=== PATIENT | male | born 1930 | race Caucasian/White ===

== ENCOUNTER 2016-10-08 20:50 | Inpatient (IN) ==
--- NOTE | 2016-10-08 21:48 | PROVIDER DOCUMENTATION ---
HPI-Abdominal Pain/GI Problem - General Chief Complaint: Rectal Bleeding Stated Complaint: Abd pain and Rectal bleeding Time Seen by Provider: 10/08/16 21:20 Source: patient Allergies/Adverse Reactions: Patient Allergies Allergy/AdvReac Type Severity Reaction Status Date / Time meperidine HCl * Allergy Severe prolonged Verified 08/07/16 21:57 [From Demerol] sedation Home Medications: Home Medication List Medication Instructions Recorded Confirmed Last Taken Type Tamsulosin HCl 0.4 mg PO DAILY 03/30/15 10/08/16 10/07/16 History Amlodipine Besylate 5 mg PO DAILY 10/08/16 10/08/16 10/07/16 History Citalopram Hydrobromide 20 mg PO DAILY 10/08/16 10/08/16 10/07/16 History [Citalopram HBr] Cyanocobalamin (Vitamin B-12) 5,000 mcg PO DAILY 10/08/16 10/09/16 10/07/16 History [Vitamin B12] - History of Present Illness-ABD Nature of Presenting Problems: Patient is a pleasant 86 yrs old gentleman who has come with complaint of bleeding per rectum. He states that he was doing alright. Ready to take shower when he felt like having a bowel movement. He went to the commord and then passed bright red blood. He started having some lower abd pain as well which was cramping like in nature and moderate in severity . No other particular complaints . No N/V no headache , no dizziness, lightheadedness or any other complaints. He tells that he had a colonoscopy done in the past and got some poypectomy done. Per records he did have an admission before for GI bleeding as well. He sees the GI here at [facility] , does not remember name of the physician. Abdominal Pain Onset Location: reports: RLQ, suprapubic Pain Radiation: reports: no radiation Quality of Pain: reports: sharp Severity in ED: reports: mild Onset/Duration: reports: abrupt, 1-3 hours ago Timing: reports: improving Activities at Onset: reports: light activity Exposure to sick contacts?: No Modifying Factors: improves with: nothing Associated Symptoms: reports: denies symptoms Last BM: this evening Dark Stools Present?: reports: bright red blood Rectal Bleeding: reports: bleeding without stool, bright red blood on paper Rectal Pain: reports: none Emesis Description: reports: none Bruising or Bleeding Gums?: No Similar Symptoms Previously?: No Recently seen or treated by another doctor?: No Review of Systems - Adult - REVIEW OF SYSTEMS - ADULT Constitutional: reports: no symptoms reported Eyes: reports: no symptoms reported Ears, Nose, Mouth & Throat: reports: no symptoms reported Cardiovascular: reports: no symptoms reported Respiratory: reports: no symptoms reported Gastrointestinal: reports: see HPI Genitourinary: reports: no symptoms reported Musculoskeletal: reports: no symptoms reported Integumentary: reports: no symptoms reported Neurological: reports: no symptoms reported Psychiatric: reports: no symptoms reported Endocrine: reports: no symptoms reported Hematologic/Lymphatic: reports: no symptoms reported Allergic/Immunologic: reports: no symptoms reported Past History - Adult - PAST MEDICAL HISTORY-ADULT Review of Records: reports: Old Records Reviewed Major Childhood Illnesses: reports: denies history Cardiovascular: reports: HTN Gastrointestinal: reports: GI bleed, polyps Genitourinary: reports: prostate cancer Neurological: reports: CVA - PRIOR SURGERIES/PROCEDURES Surgical/Procedure History: reports: appendectomy - PRIOR HOSPITALIZATIONS Prior Hospitalizations: reports: none - IMMUNIZATION STATUS Childhood Immunizations: See Nurse Assessment Flu Vaccine: See Nurse Assessment - FAMILY HISTORY Family History: reviewed, not pertinent - SOCIAL HISTORY Smoking: denies, non-smoker Substance Use: none/never Alcohol Use Frequency: never Physical Exam-General - PHYSICAL EXAM-ADULT Initial Vital Signs Reviewed: Yes - CONSTITUTIONAL General Appearance: appears well, alert, no apparent distress - EYES Eyes: PERRL/EOMI - HEAD, EARS, NOSE, MOUTH & THROAT HENMT: normocephalic/atraumatic - NECK Neck: non-tender - RESPIRATORY Respiratory: chest non-tender - CARDIOVASCULAR Cardiovascular: normal peripheral pulses - GASTROINTESTINAL (ABDOMEN) Abdominal Exam: soft, no organomegaly, no pulsatile mass, other (Tenderness in the lower abd) - LYMPHATIC Lymphatic: no adenopathy - MUSCULOSKELETAL Back Exam: normal inspection, no CVA tenderness, no vertebral tenderness Extremity: normal range of motion - SKIN Integumentary: normal color, normal turgor, warm/dry - NEUROLOGIC Neurologic: grossly normal, no motor/sensory deficits - PSYCHIATRIC Psych/Mental Status: normal mood/affect, normal thought content, normal thought process, oriented x 3 Progress - PLAN OF CARE/RESULTS Progress/Plan/Lab Results: Vital Signs - 8 hr 08 21:24 Temperature 98.1 F Pulse Rate 64 Respiratory Rate 17 Blood Pressure 168/83 O2 Sat by Pulse Oximetry 96 Patient is feeling overall much improved. The CT abd is not positive for any acute finding. There is no bleeding noticed here but his hemocult is positive here. Vitally stable here and H/H stable as well. But was about to pass out at home when this episode started. Needs admission for management and GI eval . The Hospitalist service here has reached to its cap , so cannot take any more admissions. Cannot transfer to [place] as no GI service there. No medical beds available at [facility]. [place] Hospitalist service trying to be contacted. the attending ERphysician has kindly offered to take care of this transfer to [place]. Transferring care of this patient to Dr. Cardoza ER physician at 1:28 am . Result Diagrams: 10/08/16 22:35 Departure - Departure Date of Disposition Decision: 10/09/16 Time of Disposition Decision: 01:09 DIAGNOSIS: GI bleed Disposition: ADMITTED INPATIENT 09 Certified Medical Emergency: Emergent Condition: Stable Referrals and Follow-Ups: Skip Keith MD [Primary Care Provider] - - Critical Care Note This patient required my direct & personal management of CC.: Yes Attestation - Physician/ NANCI Attestation Patient care was provided by Advanced Practice Provider:: No The physician spent face to face time with patient:: Yes Advanced Practice Provider documentation review:: Supervising physician onsite and consulted in the evaluation and care of this patient. The physician did have a face to face encounter with the patient.
--- NOTE | 2016-10-08 22:33 | Diag Imaging Result Doc PS360 ---
EXAM: CT ABDOMEN/PELVIS W/O CONTRAST HISTORY: Abd pain TECHNIQUE: CT abdomen and pelvis without contrast. Dose reduction protocol. COMPARISON: 08/07/2016 FINDINGS: There is prominent fatty infiltration of the liver. No calcified gallstones or adjacent inflammation. There is a small hiatal hernia. There are multiple scattered splenic granulomata. Spleen is not enlarged. Normal pancreas and right adrenal gland. There is thickening to the left adrenal gland similar to the prior study. No renal stones. No hydronephrosis. Moderate atherosclerosis. There is stool throughout the colon. The bowel loops are not dilated. No inflammation about the cecum. No abscess. The urinary bladder is distended and appears normal. The prostate measures 5.1 cm in transverse dimension. There are small fat filled inguinal hernias. No bowel loops within these. Moderate to prominent degenerative spine changes. IMPRESSION: 1.Fatty infiltration of the liver 2.Constipation 3.Small hiatal hernia Electronically signed by Tawanda Mayers 10/08/2016 10:30 PM
[2016-10-08 22:51] LABS: MANUAL DIFF NEEDED? NO
[2016-10-08 22:56] LABS: BASO% 0.3 % (0.0-0.8); EOS# 0.19 X1000 (0.0-0.7); EOS% 2.6 % (0.0-10.0); HEMATOCRIT 38.1 % (42.0-52.0); IMM GRAN# 0.02 X1000 (0.0-0.04); IMM GRAN% 0.3 % (0.0-0.5); LYMPH# 0.98 X1000 (1.2-3.4); LYMPH% 13.5 % (20.5-51.1); MCH 32.5 PG (27-31); MCHC 34.1 g/dL (33-37); MCV 95.3 FL (81-99); MONO% 6.9 % (1.7-9.3); NEUT% 76.4 % (42.2-75.2); PLT 207 X1000 (130-400)
[2016-10-08 23:06] LABS: INR 1.01; PROTIME 10.6 Seconds (9.2-11.7)
[2016-10-09] MEDS ORDERED: GOLYTELY PO ONE (02:10)
[2016-10-09 02:34] LABS: ALBUMIN 4.2 g/dL (3.5-5.0); CALCIUM 9.5 mg/dL (8.8-10.2); POTASSIUM 4.6 mmol/L (3.5-5.1); TOTAL BILIRUBIN 0.26 mg/dL (0.20-1.00); TOTAL PROTEIN 6.9 g/dL (6.3-8.3)
[2016-10-09] MEDS ORDERED: ANALPRAM HC CREAM PR ONE (02:37)
--- NOTE | 2016-10-09 03:58 | HISTORY AND PHYSICAL ---
REASON FOR ADMISSION: One episode of hematochezia. HISTORY OF PRESENT ILLNESS: Mr. 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 The patient comes in today complaining of 1 episode of hematochezia. He reports that prior to that, he tried to defecate but he had intense proctalgia on 2 attempts. On the 3rd attempt, he noticed that his stool was "liquid" but when he looked down, it noticed it was blood. When he wiped himself, his tissue was soaked in blood. Since then, he says he has been scared to defecate and had no repeat episodes of hematochezia. He denies any mass protruding out of his rectum. He denies any antecedent history of weight loss, nausea, vomiting, abdominal pain. Since he has been in the ER, his rectal pain has eased. He denies any genitourinary complaints. He denies any cardiorespiratory complaints. No dizziness, no shortness of breath. REVIEW OF SYSTEMS: A 12 system review was done with positive findings per HPI. ALLERGIES: Demerol. HOME MEDICATION LIST: Comprised of Norvasc 5 mg daily, Celexa 20 mg daily, vitamin B12 5000 international units daily, and Flomax 0.4 mg daily. SURGICAL HISTORY: He has had numerous polypectomies and he has had appendectomy. FAMILY HISTORY: Notable for peripheral arterial disease and stroke. SOCIAL HISTORY: He is now a . He is no longer with the woman he was to a year ago. He does not smoke, drink, or use illicit drugs. LABORATORY WORK: White count 7000, hemoglobin and hematocrit 13 and 38, platelets 207,000. PT and PTT are normal. CT scan of the abdomen and pelvis showed fatty infiltration of the liver and constipation with a small hiatal hernia. No evidence of inflammatory changes. Chemistries pending. PHYSICAL EXAMINATION: VITAL SIGNS: Blood pressure is 160/60, heart rate is 63, respirations 14, temperature is 98.1, he is 98% on room air. GENERAL: He is a pleasant, elderly man who is alert and oriented to person and time with normal mood and affect. HEENT: He is anicteric and not pale. ENT and oropharyngeal exam is grossly normal. NECK: Short and thick. No JVD. No carotid bruit. No thyromegaly. CHEST: Clear to auscultation with good air entry in both lung kelsey. CARDIOVASCULAR: First and second heart sounds heard. No gallops, murmurs, or rubs. Rhythm is regular. ABDOMEN: Protuberant, soft, and nontender. Bowel sounds are hypoactive. RECTAL: Examination was deferred as the ER physician has already done a digital exam. Hemoccult was positive. EXTREMITIES: Neurovascularly intact. No edema, clubbing, or peripheral cyanosis. NEUROLOGICAL: No focal deficits. SKIN: Intact with no breakdown, lesions, or erythema. MUSCULAR: Examination is grossly normal. ASSESSMENT: 1. Lower gastrointestinal bleed, could be hemorrhoidal versus proctitis. 2. Severe constipation. 3. Hypertension. 4. Prostatism. PLAN: At this time, we will repeat a CBC in about 6 hours. If it is stable, we will repeat another one. I would suggest repeating another one in another 6 hours. If his hematocrit remains stable and the patient's symptoms have improved, and he has achieved a satisfactory desiccation, he can be discharged to follow up electively with Dr. Nance for a colonoscopy. However, if Dr. Nance prefers to have the patient fully prepped, the patient will probably have the colonoscopy done later in the evening and if no abnormal lesions are noted, he can be discharged later in the day. The patient has been started on GoLYTELY to address 2 things; one, his constipation and two, for possible prep for colonoscopy. I have also started the patient on pramoxine and hydrocortisone cream to be applied rectal to allay patient's proctalgia. Chemistry is still pending at this time and for any gross abnormalities, we will address those. I would recommend that patient long-term be on at least a mild laxative to prevent this from happening in the future. cc: MD Skip Goldberg MD MTDD
[2016-10-09] MEDS ORDERED: SODIUM CHLORIDE 0.9% INJ ONE (06:20)
[2016-10-09] MEDS ORDERED: NS 1,000 ML IV SCH (06:20)
[2016-10-09] MEDS ORDERED: ZOFRAN IV PRN (06:20)
[2016-10-09] MEDS ORDERED: TYLENOL PO PRN (06:20)
[2016-10-09 06:56] LABS: MANUAL DIFF NEEDED? NO
[2016-10-09 07:05] LABS: BASO% 0.1 % (0.0-0.8); EOS# 0.32 X1000 (0.0-0.7); EOS% 4.5 % (0.0-10.0); HEMOGLOBIN 12.8 g/dL (14.0-18.0); LYMPH# 1.39 X1000 (1.2-3.4); LYMPH% 19.5 % (20.5-51.1); MCH 31.9 PG (27-31); MCHC 33.7 g/dL (33-37); MCV 94.8 FL (81-99); MONO# 0.59 X1000 (0.11-0.59); MONO% 8.3 % (1.7-9.3); MPV 10.5 FL (7.4-10.4); NEUT% 67.6 % (42.2-75.2); PLT 199 X1000 (130-400); RBC 4.01 XMIL (4.7-6.1)
[2016-10-09 07:31] LABS: POTASSIUM 3.8 mmol/L (3.5-5.1); TOTAL BILIRUBIN 0.44 mg/dL (0.20-1.00); TOTAL PROTEIN 6.7 g/dL (6.3-8.3)
[2016-10-09] MEDS ORDERED: 1/2 NS 1,000 ML IV SCH (07:47)
[2016-10-09] MEDS ORDERED: NORVASC PO SCH (09:00)
[2016-10-09] MEDS ORDERED: PROTONIX IV SCH (09:00)
[2016-10-09] MEDS ORDERED: FLOMAX PO SCH (09:00)
[2016-10-09 11:46] VITALS: BP 139/73
[2016-10-09] MEDS ORDERED: GLYCERIN ADULT PR ONE (13:47)
--- NOTE | 2016-10-09 18:04 | CONSULTATION ---
DATE OF CONSULTATION: 10/09/2016 REASON FOR REFERRAL: Hematochezia and rectal pain. HISTORY OF PRESENT ILLNESS: This is an 86-year-old white male who we have seen in the past. He reports an onset of rectal pain and an episode of rectal bleeding yesterday. He reported severe rectal pain to where he had to call an ambulance. He has had no further bowel movements since the 1 episode. He reports having problems with constipation and usually takes Brooklynn-Colace 2 tablets every night. For some reason he did not take his laxative for 2 weeks. He had a colonoscopy in March 2015 that showed telangiectasia of the rectum, radiation induced proctitis and colon polyps in the ascending colon and hepatic flexure. PAST MEDICAL HISTORY: For prostate cancer, hypertension, history of stroke, history of kidney stones, depression, mild vascular dementia. PAST SURGICAL HISTORY: Appendectomy. Last colonoscopy was in March 2015. ALLERGIES: Demerol causing prolonged sedation. HOME MEDICATIONS: B12 5000 mcg daily, Flomax 0.4 mg daily, amlodipine 5 mg daily, citalopram 20 mg daily. SOCIAL HISTORY: No reported alcohol or tobacco use. He is retired. He is a . He has 3 children. REVIEW OF SYSTEMS: Per HPI. PHYSICAL EXAMINATION: Vital Signs: Temperature 97.8 degrees, pulse 73, respirations 18, blood pressure 139/73. General: Patient is awake, alert, no acute distress. HEENT: Normocephalic, atraumatic. Pupils equal, round, reactive to light. Sclerae nonicteric. Cardiovascular: Regular rate and rhythm. Abdomen: Soft, nontender. Respiratory: Clear bilaterally. Extremities: No lower extremity edema noted. Neurological: Cranial nerves 2-12 grossly intact. Patient is awake, alert, oriented to person, place, and time. DIAGNOSTIC RESULTS: Laboratory. Hematology. White count 7.13, hemoglobin 12.8, hematocrit 38.0, MCV 94.8, platelets 199,000. Pro time 10.6, INR 1.01. Chemistry. Sodium 143, potassium 3.8, chloride 104, CO2 25, BUN 19, creatinine 1.2, glucose 112, total bilirubin 0.44, AST 19, ALT 24, alkaline phosphatase 68. Abdominal pelvis CT scan showed fatty liver, constipation and small hiatal hernia. ASSESSMENT AND PLAN: 1. Hematochezia. 2. Rectal pain. 3. Constipation. 4. 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 PLAN: The patient has drank 3/4 of a gallon of GoLYTELY. He reports having several bowel movement early in the morning. We will give him a glycerin suppository and restart his Brooklynn- Colace tablets every night. Monitor for further bleeding. Monitor hemoglobin and hematocrit. If bleeding resolves patient can be discharged to follow up with Dr. Nance as an outpatient. We will continue to follow while he is in the hospital and further plans will be made as needed. I have discussed this case with Dr. Nance. Thank you for this consultation. Dictated by MARYAN Rodriguez for Boone Nance MD cc: MARYAN Lehman MD
[2016-10-09] MEDS ORDERED: PERICOLACE PO SCH (21:00)
--- NOTE | 2016-10-13 01:31 | DISCHARGE SUMMARY ---
ADMISSION DATE: 10/09/2016 DISCHARGE DATE: 10/09/2016 FINAL DISCHARGE DIAGNOSES: 1. Rectal bleeding. 2. Hypertension. 3. Depression. 4. BPH. CONSULTATIONS REQUESTED DURING THIS HOSPITAL STAY: GI consultation with Dr. Nance. HOSPITAL COURSE: Mr. Sutton is an 86-year-old male with a history of dementia, depression, and colonic polyps who presented to the ER with a chief complaint of hematochezia that occurred once while at home. The patient does have a history of radiation proctitis and AVMs. The patient was admitted to the hospitalist service and GI was consulted. The patient was seen by the wire mill operator, who recommended to give the patient a laxative to stimulate a bowel movement, which the patient had but there was no bleeding noted the patient had a bowel movement. In light of this finding, it was decided that the patient is stable for discharge home with instructions to follow up with Dr. Nance as scheduled by his clinic. DISCHARGE MEDICATIONS: 1. MiraLAX 17 g p.o. daily. 2. Flomax 0.4 mg p.o. daily. 3. Vitamin B12 5000 mcg oral daily. 4. Norvasc 5 mg p.o. daily. 5. Celexa 20 mg p.o. daily. DISCHARGE DIET: Low sodium diet. ACTIVITY: As tolerated. FOLLOWUP INSTRUCTIONS: The patient has been advised to follow up with Dr. Nance as scheduled by his clinic. TIME SPENT: The total time for this discharge is less than 30 minutes. cc: MD Skip Alas MD
== END 2016-10-09 16:16 | disposition home or self-care (01) ==
LOC: ED 20:50 → EDIPHOLD 10-09 03:07 → SUATTDRO 10-09 03:07 → 3N 10-09 12:27
PROVIDERS: ATTEND Internal Medicine